=== PATIENT | male | born 1955 | race African-American/Black ===

== ENCOUNTER 2023-03-31 09:25 | Inpatient (IN) | payer OTHER ==
[2023-03-18 13:36] VITALS: BMI 32.9
[2023-03-31] MEDS ORDERED: ACETAMINOPHEN INJECTION 100 ML IVPB ONE (10:06)
[2023-03-31] MEDS ORDERED: MIDAZOLAM HCL 2 MG/2 ML SINGLE DOSE VIAL ONE ×2 (10:06→11:42)
[2023-03-31] MEDS ORDERED: BUPIVACAINE LIPOSOME/PF (EXPAREL) 266 MG/20 ML VIAL ONE (10:06)
[2023-03-31] MEDS ORDERED: BUPIVACAINE HCL/PF 0.5% (5 MG/ML) 30 ML VIAL IJ ONE (10:06)
[2023-03-31] MEDS ORDERED: FENTANYL CITRATE/PF 50 MCG/ML VIAL ONE (10:33)
[2023-03-31] MEDS ORDERED: BUPIVACAINE HCL/PF 0.5% (5MG/ML) 10 ML VIAL ONE (10:33)
[2023-03-31] MEDS ORDERED: ONDANSETRON 4 MG/2 ML VIAL ONE (11:21)
[2023-03-31] MEDS ORDERED: DEXAMETHASONE SOD PHOSPHATE 4 MG/1 ML VIAL ONE (11:21)
[2023-03-31] MEDS ORDERED: PROPOFOL 40 ML ONE (11:27)
[2023-03-31] MEDS ORDERED: ceFAZolin SODIUM 1 GM VIAL ONE (12:06)
[2023-03-31] MEDS ORDERED: TRANEXAMIC ACID 1000 MG/10 ML VIAL ONE (12:06)
[2023-03-31] MEDS ORDERED: ONDANSETRON 4 MG/2 ML VIAL IVPUSH PRN ×3 (14:47→15:34)
[2023-03-31] MEDS ORDERED: MAG HYDROX/AL HYDROX/SIMETH 30 ML UNIT-DOSE CUP PO PRN (15:13)
[2023-03-31] MEDS ORDERED: MAGNESIUM HYDROX 2400MG/30ML ORAL SUSPENSION 30 ML CUP PO PRN (15:13)
[2023-03-31] MEDS ORDERED: PATIENT'S OWN MEDICATION (NON-FORMULARY) (Semaglutide [Ozempic] 0.25 MG/0.2 ML Pen.Injctr) SQ SCH (15:15)
[2023-03-31] MEDS ORDERED: LACTATED RINGERS SOLUTION 1,000 ML IV SCH ×2 (15:15→15:45)
[2023-03-31] MEDS ORDERED: oxyCODONE HCL 5 MG TABLET PO PRN (15:34)
[2023-03-31 16:35] LABS: HIV INTERPRETATION NEGATIVE (NEGATIVE)
[2023-03-31] MEDS: LACTATED RINGERS SOLUTION 1,000 ML IV SCH (17:08)
[2023-03-31] MEDS: oxyCODONE HCL 5 MG TABLET PO PRN (17:12)
[2023-03-31] MEDS: ACETAMINOPHEN 500 MG TABLET (FP) PO SCH ×2 (17:13→21:38)
[2023-03-31] MEDS ORDERED: ENOXAPARIN NA (PORCINE) 40 MG/0.4 ML DISP.SYRIN SQ SCH (19:45)
[2023-03-31] MEDS: ATORVASTATIN CA 10 MG TABLET (FP) PO SCH (21:37)
[2023-03-31] MEDS: CELECOXIB 100 MG CAPSULE PO SCH (21:37)
[2023-03-31] MEDS: SENNOSIDES/DOCUSATE COMBO (SENNA PLUS) TABLET (UD) PO SCH (21:38)
[2023-03-31] MEDS: ASPIRIN COATED 81 MG TABLET.EC PO SCH (21:38)
[2023-03-31] MEDS: CEFAZOLIN SODIUM 2 GM in DEXTROSE 5%-WATER 100 ML IVPB SCH (22:40)
[2023-03-31] MEDS: MELATONIN 1 MG TABLET PO SCH (23:39)
[2023-04-01] MEDS: oxyCODONE HCL 5 MG TABLET PO PRN ×5 (02:08→21:23)
[2023-04-01] MEDS: CEFAZOLIN SODIUM 2 GM in DEXTROSE 5%-WATER 100 ML IVPB SCH ×2 (02:41→08:31)
[2023-04-01] MEDS: ACETAMINOPHEN 500 MG TABLET (FP) PO SCH ×4 (05:41→21:19)
[2023-04-01 07:42] LABS: HEMATOCRIT 37.1 % (35.4-49); HEMOGLOBIN 12.3 G/dL (11.7-16.9); MCH 26.9 pg (25.7-33.7); MEAN CELL VOLUME 81.6 fl (80-96); RBC 4.55 10^6/uL (4.00-5.60); RDW 17.2 % (11.9-15.9); WHITE BLOOD COUNT 7.4 10^3/uL (4.0-10.8)
[2023-04-01 08:04] LABS: BLOOD UREA NITROGEN 19.1 mg/dl (7-18); CALCIUM 8.9 mg/dl (8.5-10.1); CREATININE 1.2 mg/dl (0.6-1.3); POTASSIUM 4.1 mmol/L (3.5-5.1)
[2023-04-01] MEDS: TAMSULOSIN HCL 0.4 MG CAP PO SCH (08:31)
[2023-04-01] MEDS: SENNOSIDES/DOCUSATE COMBO (SENNA PLUS) TABLET (UD) PO SCH ×2 (09:51→21:20)
[2023-04-01] MEDS: CELECOXIB 100 MG CAPSULE PO SCH ×2 (09:51→21:20)
[2023-04-01] MEDS: LOSARTAN POTASSIUM 50 MG TABLET PO SCH (09:51)
[2023-04-01] MEDS: LORATADINE 10 MG TABLET PO SCH (09:51)
[2023-04-01] MEDS: ASPIRIN COATED 81 MG TABLET.EC PO SCH ×2 (09:51→21:20)
[2023-04-01] MEDS: DULoxetine HCL 30 MG CAPSULE.DR PO SCH (09:51)
[2023-04-01] MEDS: ATENOLOL 50 MG TABLET (FP) PO SCH (09:51)
[2023-04-01] MEDS: PANTOPRAZOLE 40 MG TABLET PO SCH (09:51)
[2023-04-01] MEDS: amLODIPine BESYLATE 5 MG TABLET (FP) PO SCH (09:51)
[2023-04-01] MEDS: LACTATED RINGERS SOLUTION 1,000 ML IV SCH (16:37)
[2023-04-01] MEDS: ATORVASTATIN CA 10 MG TABLET (FP) PO SCH (21:20)
[2023-04-01] MEDS: MELATONIN 1 MG TABLET PO SCH (21:21)
[2023-04-02] MEDS: oxyCODONE HCL 5 MG TABLET PO PRN ×3 (00:23→14:00)
[2023-04-02] MEDS: ACETAMINOPHEN 500 MG TABLET (FP) PO SCH ×2 (06:25→09:34)
[2023-04-02 06:58] VITALS: RESP 18
[2023-04-02] MEDS: TAMSULOSIN HCL 0.4 MG CAP PO SCH (08:04)
[2023-04-02 08:44] LABS: HEMATOCRIT 33.5 % (35.4-49); MCH 26.8 pg (25.7-33.7); MCHC 32.8 g/dl (32.0-35.9); MEAN CELL VOLUME 81.6 fl (80-96); MEAN PLT VOLUME 10.4 fl (7.5-11.1); PLATELET COUNT 275.9 10^3/uL (134-434); RDW 16.9 % (11.9-15.9); WHITE BLOOD COUNT 8.7 10^3/uL (4.0-10.8)
[2023-04-02] MEDS: LORATADINE 10 MG TABLET PO SCH (09:33)
[2023-04-02] MEDS: CELECOXIB 100 MG CAPSULE PO SCH (09:33)
[2023-04-02] MEDS: DULoxetine HCL 30 MG CAPSULE.DR PO SCH (09:33)
[2023-04-02] MEDS: ASPIRIN COATED 81 MG TABLET.EC PO SCH (09:33)
[2023-04-02] MEDS: SENNOSIDES/DOCUSATE COMBO (SENNA PLUS) TABLET (UD) PO SCH (09:34)
[2023-04-02] MEDS: PANTOPRAZOLE 40 MG TABLET PO SCH (09:34)
[2023-04-02] MEDS: amLODIPine BESYLATE 5 MG TABLET (FP) PO SCH (10:06)
[2023-04-02] MEDS: ATENOLOL 50 MG TABLET (FP) PO SCH (10:06)
[2023-04-02] MEDS: LOSARTAN POTASSIUM 50 MG TABLET PO SCH (10:06)
[2023-04-02 11:00] VITALS: BP 99/62; PULSE 81; TEMP 97.7
== END 2023-04-02 15:18 | DRG 470 ==
LOC: FM/S 09:25 → EDSTATUS 12:30 → FM/S 15:57
PROVIDERS: ADMIT Orthopaedic Surgery Orthopaedic Surgery of the Spine; ATTEND Orthopaedic Surgery Orthopaedic Surgery of the Spine
PROC: 0SRC0JZ Replacement of Right Knee Joint with Synthetic Substitute, Open Approach (ICD-10-PCS; principal; 2023-03-31 11:44)
DX: M17.11 Unilateral primary osteoarthritis, right knee (principal); E78.5 Hyperlipidemia, unspecified; I10 Essential (primary) hypertension; E11.9 Type 2 diabetes mellitus without complications; N40.0 Benign prostatic hyperplasia without lower urinary tract symptoms; E66.9 Obesity, unspecified; Z68.32 Body mass index [BMI] 32.0-32.9, adult; K21.9 Gastro-esophageal reflux disease without esophagitis; M79.7 Fibromyalgia
CPT/HCPCS: 36415; 73560-TC-RT-FY; 80048; 82962; 85027; 87389; 87635; 87902; 88305-TC; 88311-TC; 94760; 97010-GP; 97116-GP; 97162-GP; C1713; C1776